=== PATIENT | female | born 1955 | race Two or more races ===

== ENCOUNTER 2016-07-17 18:43 | Emergency (ER) | payer MEDICARE, MEDICAID ==
[~2016-07-17] VITALS: Ht 180.3 cm; Wt 83.9 kg
[~2016-07-17 18:43] MED LIST: INSUINJ37 SC; LISI2.5T47 PO; [UNRECOGNIZED DRUG - CODE] PO
[2016-07-17 20:06] LABS: Basophils # (auto) 0 uL; Basophils % (auto) 0.6 % (0.0-2.0); Eosinophils # (auto) 0.1 uL; Eosinophils % (auto) 2.2 % (0.0-7.0); Hematocrit 37.7 % (36.0-46.0); Hemoglobin 12.5 g/dL (12.2-16.2); Lymphocytes % (auto) 31.1 % (10.0-50.0); Mean Corpuscular Hemoglobin 27.4 pg (28.0-32.0); Mean Corpuscular Hgb Conc. 33.3 g/dL (32.0-36.0); Mean Corpuscular Volume 82.2 fL (80.0-100.0); Mean Platelet Volume 9.9 fL (7.4-10.4); Monocytes # (auto) 0.7 uL; Monocytes % (auto) 10.5 % (0.0-12.0); Neutrophils # (auto) 3.6 uL; Neutrophils % (auto) 55.6 % (37.0-80.0); Platelet Count (auto) 233 10^3/uL (140-450); Red Cell Distribution Width 13.6 % (11.6-16.0); White Blood Cell 6.4 10^3/uL (4.4-10.8)
[2016-07-17 20:22] LABS: Albumin 2.7 g/dL (3.4-5.0); Anion Gap 11 (5-15); Aspartate Aminotransferase 15 U/L (15-37); BUN/Creatinine Ratio 24.6; Blood Urea Nitrogen 16 mg/dL (7-18); Calcium 8.2 mg/dL (8.5-10.1); Carbon Dioxide 26 mmol/L (21-32); Chloride 103 mmol/L (98-107); GFR African American 120 mL/min; GFR Non-African American 99 mL/min; Glucose 329 mg/dL (74-106); Sodium 140 mmol/L (136-145)
[2016-07-17 20:26] LABS: Alkaline Phosphatase 109 U/L (45-117); Bilirubin, Total 0.8 mg/dL (0.2-1.0); Total Protein 6.2 g/dL (6.4-8.2)
[2016-07-17] MEDS ORDERED: MORPHINE SULFATE 4 MG/ML SYRG IV ONE (20:30)
[2016-07-17] MEDS ORDERED: ONDANSETRON HCL 4 MG/2 ML VIAL IV ONE (20:30)
[2016-07-17] MEDS ORDERED: SODIUM CHLORIDE 0.9% 1,000 ML IV ONE (20:30)
[2016-07-18] MEDS ORDERED: diphenhdrAMINE HCL 50 MG/1 ML VL IV ONE (00:30)
[2016-07-18 07:20] VITALS: BP 146/72
== END 2016-07-18 07:22 | disposition home or self-care (01) ==
LOC: EDUNIT# 18:43 → ER 18:43 → EDBD 18:43 → ER 07-18 07:22
DX: S39.012A Strain of muscle, fascia and tendon of lower back, initial encounter (principal); X58.XXXA Exposure to other specified factors, initial encounter; Y93.89 Activity, other specified; Y92.89 Other specified places as the place of occurrence of the external cause; Y99.8 Other external cause status; I25.10 Atherosclerotic heart disease of native coronary artery without angina pectoris; I10 Essential (primary) hypertension; E11.9 Type 2 diabetes mellitus without complications; Z88.6 Allergy status to analgesic agent; Z88.8 Allergy status to other drugs, medicaments and biological substances; Z79.4 Long term (current) use of insulin; Z79.899 Other long term (current) drug therapy; K59.00 Constipation, unspecified; N28.1 Cyst of kidney, acquired; M51.36 Other intervertebral disc degeneration, lumbar region
CPT/HCPCS: 36415; 74176; 80053; 84484; 85025; 93005; 96361; 96374; 96375; 99285; J1200; J2270; J2405; J7030

== ENCOUNTER 2016-07-19 19:13 | Emergency (ER) | payer MEDICARE, MEDICAID ==
[~2016-07-19] VITALS: Ht 180.3 cm; Wt 83.9 kg
[2016-07-19 20:15] LABS: Basophils # (auto) 0 uL; Basophils % (auto) 0.6 % (0.0-2.0); Eosinophils # (auto) 0.1 uL; Eosinophils % (auto) 1.6 % (0.0-7.0); Hematocrit 37.9 % (36.0-46.0); Hemoglobin 12.7 g/dL (12.2-16.2); Lymphocytes # (auto) 2.6 uL; Lymphocytes % (auto) 35.7 % (10.0-50.0); Mean Corpuscular Hemoglobin 27.4 pg (28.0-32.0); Mean Corpuscular Hgb Conc. 33.4 g/dL (32.0-36.0); Mean Corpuscular Volume 82.1 fL (80.0-100.0); Mean Platelet Volume 9.5 fL (7.4-10.4); Monocytes # (auto) 0.7 uL; Monocytes % (auto) 9.4 % (0.0-12.0); Neutrophils # (auto) 3.8 uL; Neutrophils % (auto) 52.7 % (37.0-80.0); Platelet Count (auto) 260 10^3/uL (140-450); Red Cell Distribution Width 13.5 % (11.6-16.0); White Blood Cell 7.3 10^3/uL (4.4-10.8)
[2016-07-19 20:32] LABS: Anion Gap 9 (5-15); Aspartate Aminotransferase 17 U/L (15-37); BUN/Creatinine Ratio 32.8; Blood Urea Nitrogen 22 mg/dL (7-18); Calcium 8.6 mg/dL (8.5-10.1); Carbon Dioxide 24 mmol/L (21-32); Chloride 106 mmol/L (98-107); GFR African American 115 mL/min; GFR Non-African American 95 mL/min; Glucose 195 mg/dL (74-106); Magnesium 2.2 mg/dL (1.6-2.6); Potassium 3.9 mmol/L (3.5-5.1); Sodium 139 mmol/L (136-145)
[2016-07-19 20:33] LABS: INR 0.93 (0.9-1.15); Partial Thromboplastin Time 25.7 sec (22.64-33.71); Prothrombin Time 9.6 sec (9.37-12.3)
[2016-07-19 20:37] LABS: Alkaline Phosphatase 125 U/L (45-117); Bilirubin, Total 0.8 mg/dL (0.2-1.0); Total Protein 6.5 g/dL (6.4-8.2)
[2016-07-20] MEDS ORDERED: ACETAMINOPHEN 325 MG TAB PO ONE (02:45)
[2016-07-20 03:35] VITALS: BP 131/72
== END 2016-07-20 03:40 | disposition home or self-care (01) ==
LOC: ER 19:16
DX: I10 Essential (primary) hypertension (principal); Z88.8 Allergy status to other drugs, medicaments and biological substances; Z88.5 Allergy status to narcotic agent; Z88.6 Allergy status to analgesic agent; Z79.899 Other long term (current) drug therapy; Z79.84 Long term (current) use of oral hypoglycemic drugs; E11.9 Type 2 diabetes mellitus without complications; I25.10 Atherosclerotic heart disease of native coronary artery without angina pectoris
CPT/HCPCS: 36415; 70450; 80053; 83735; 84484; 85025; 85610; 85730; 93005

== ENCOUNTER 2017-05-02 11:52 | Emergency (ER) | payer MEDICARE, MEDICAID ==
[~2017-05-02] VITALS: Ht 167.6 cm; Wt 81.6 kg
[~2017-05-02 11:52] MED LIST changes: +AMLO5TAB2 PO; +GABA100C9 PO; +INSUINJ18 SC; -INSUINJ37 SC; +LEVEMIR SC; +LISI-275 PO; -LISI2.5T47 PO; +METO-281 PO; -[UNRECOGNIZED DRUG - CODE] PO
[2017-05-02 12:24] VITALS: BP 176/91
== END 2017-05-02 12:55 | disposition left against medical advice (07) ==
LOC: EDUNIT# 11:52 → EDBD 11:52 → ER 11:52
DX: I10 Essential (primary) hypertension (principal); Z53.21 Procedure and treatment not carried out due to patient leaving prior to being seen by health care provider
CPT/HCPCS: 93005

== ENCOUNTER 2017-05-22 13:07 | Inpatient (IN) | payer MEDICARE, MEDICAID ==
[~2017-05-22] VITALS: Ht 167.6 cm; Wt 94.9 kg
[2017-05-22 14:49] LABS: Basophils # (auto) 0 uL; Basophils % (auto) 0.3 % (0.0-2.0); Eosinophils # (auto) 0 uL; Hematocrit 29.6 % (36.0-46.0); Hemoglobin 9.9 g/dL (12.2-16.2); Lymphocytes # (auto) 0.5 uL; Lymphocytes % (auto) 4.1 % (10.0-50.0); Mean Corpuscular Hemoglobin 27.7 pg (28.0-32.0); Mean Corpuscular Hgb Conc. 33.3 g/dL (32.0-36.0); Monocytes # (auto) 0.3 uL; Neutrophils % (auto) 93.6 % (37.0-80.0); Nucleated Red Blood Cells % 0.1 %; Platelet Count (auto) 256 10^3/uL (140-450); Red Blood Cells 3.57 10^6/uL (4.0-5.20); Red Cell Distribution Width 15.3 % (11.8-14.3); White Blood Cell 12.9 10^3/uL (4.4-10.8)
[2017-05-22 15:01] LABS: INR 1.04 (0.9-1.15); Prothrombin Time 11.3 sec (9.37-12.3)
[2017-05-22 15:13] LABS: Albumin 2.5 g/dL (3.4-5.0); BUN/Creatinine Ratio 16.3; Calcium 8.4 mg/dL (8.5-10.1); Magnesium 2.1 mg/dL (1.6-2.6); Potassium 3.3 mmol/L (3.5-5.1); Total Protein 6.5 g/dL (6.4-8.2)
[2017-05-22] MEDS ORDERED: NITROGLYCERIN 0.4 MG SL TAB SL PRN (15:45)
[2017-05-22] MEDS ORDERED: cloNIDine HCL 0.1 MG TAB PO ONE ×2 (15:45→21:00)
[2017-05-22] MEDS ORDERED: TEMAZEPAM 15 MG CAP PO PRN (15:45)
[2017-05-22] MEDS ORDERED: HYDROcodone-ACET 5/325MG TAB PO PRN (15:45)
[2017-05-22] MEDS ORDERED: ACETAMINOPHEN 325 MG TAB PO PRN (15:45)
[2017-05-22] MEDS ORDERED: HYDROmorphone HCL 2 MG/ML VL IV PRN (16:00)
[2017-05-22] MEDS ORDERED: POTASSIUM CHLORIDE 20 MEQ, LIDOCAINE 1% (LOCAL ANESTH.) 2 ML in SODIUM CHL 0.9% 100 ML IV ONE (16:00)
[2017-05-22] MEDS: SODIUM CHLORIDE 0.9% 1,000 ML IV SCH (16:04)
[2017-05-22 16:09] LABS: Amylase 45 U/L (25-115); Lipase 128 U/L (73-393)
[2017-05-22] MEDS ORDERED: cefTRIAXone 1GM/10ml IVPUSH 10 ML IV ONE (16:15)
[2017-05-22] MEDS ORDERED: VANCOMYCIN PER PHARMACY 0 MG IV SCH (16:15)
[2017-05-22] MEDS: ONDANSETRON HCL 4 MG/2 ML VIAL IV PRN (16:40)
[2017-05-22 17:43] LABS: Urine Bacteria FEW /hpf (None Seen); Urine Blood 2+ /uL (Negative); Urine Mucus FEW (None Seen); Urine Specific Gravity 1.017 (1.001-1.035); Urine WBC 480 /hpf (0 - 5); Urine WBC Clumps PRESENT /hpf (None Seen)
[2017-05-22] MEDS: Boost Glucose Control 8 Ounces PO SCH (18:00)
[2017-05-22] MEDS ORDERED: VANCOMYCIN 1,500 MG in D5W 5% 250 ML IV SCH (18:00)
[2017-05-22] MEDS: LABETALOL HCL 5 MG/ML ML 20ML VIAL IV PRN (18:18)
[2017-05-22] MEDS: METOCLOPRAMIDE HCL 10 MG TAB PO PRN (19:55)
[2017-05-22] MEDS: ENALAPRILAT 1.25 MG/ML-1ML VIAL IV PRN (20:15)
[2017-05-22] MEDS: AZITHROMYCIN 500MG/ 250ML 250 ML IV SCH (21:12)
[2017-05-22] MEDS: INSULIN DETEMIR(LEVEMIR) 1unit/0.01ml Soln (100units/ml) SC SCH (21:19)
[2017-05-22] MEDS: FAMOTIDINE 20 MG TAB PO SCH (21:19)
[2017-05-22] MEDS: GABAPENTIN 100 MG CAP PO SCH (21:19)
[2017-05-23 04:18] LABS: Basophils # (auto) 0 uL; Eosinophils # (auto) 0 uL; Mean Corpuscular Hgb Conc. 34.2 g/dL (32.0-36.0); Monocytes # (auto) 0.7 uL; Red Cell Distribution Width 15.3 % (11.8-14.3)
[2017-05-23 04:22] LABS: Basophils % (auto) 0.2 % (0.0-2.0); Hematocrit 22.6 % (36.0-46.0); Hemoglobin 7.7 g/dL (12.2-16.2); Lymphocytes # (auto) 1.3 uL; Lymphocytes % (auto) 15.8 % (10.0-50.0); Mean Corpuscular Hemoglobin 28.2 pg (28.0-32.0); Mean Corpuscular Volume 82.5 fL (80.0-100.0); Monocytes % (auto) 8.5 % (0.0-12.0); Neutrophils # (auto) 6.1 uL; Neutrophils % (auto) 75.5 % (37.0-80.0); Platelet Count (auto) 183 10^3/uL (140-450); Red Blood Cells 2.73 10^6/uL (4.0-5.20)
[2017-05-23 04:54] LABS: Albumin 1.9 g/dL (3.4-5.0); BUN/Creatinine Ratio 17.7; Bilirubin, Total 0.4 mg/dL (0.2-1.0); Calcium 7.5 mg/dL (8.5-10.1); Potassium 3.5 mmol/L (3.5-5.1)
[2017-05-23] MEDS: GABAPENTIN 100 MG CAP PO SCH ×3 (06:00→22:00)
[2017-05-23] MEDS: SODIUM CHLORIDE 0.9% 1,000 ML IV SCH ×3 (06:00→16:58)
[2017-05-23] MEDS: NovoloG Insulin 1unit/0.01ml Soln (100units/ml) SC SCH ×3 (07:00→17:00)
[2017-05-23] MEDS: INSULIN DETEMIR(LEVEMIR) 1unit/0.01ml Soln (100units/ml) SC SCH ×2 (07:08→22:00)
[2017-05-23] MEDS: Boost Glucose Control 8 Ounces PO SCH ×3 (08:00→18:00)
[2017-05-23] MEDS: cefTRIAXone 1GM/10ml IVPUSH 10 ML IV SCH (09:40)
[2017-05-23] MEDS: amLODIPine BESYLATE 5 MG TAB PO SCH (10:00)
[2017-05-23] MEDS: LISINOPRIL 5 MG TAB PO SCH (10:00)
[2017-05-23] MEDS: MULTIPLE VITAMIN TAB PO SCH (10:00)
[2017-05-23] MEDS: FAMOTIDINE 20 MG TAB PO SCH ×2 (10:09→22:00)
[2017-05-23] MEDS: AZITHROMYCIN 500MG/ 250ML 250 ML IV SCH (10:09)
[2017-05-23] MEDS ORDERED: DEXTROSE 50% SYRINGE 50 ML IV ONE (12:51)
[2017-05-23] MEDS ORDERED: DEXTROSE (50%) 50ML SYRG IV ONE (13:15)
[2017-05-23] MEDS ORDERED: DEXTROSE (50%) 50ML SYRG IV PRN (19:00)
[2017-05-23] MEDS: LABETALOL HCL 5 MG/ML ML 20ML VIAL IV PRN (23:10)
[2017-05-24] VITALS: BP 118/82
[2017-05-24] MEDS: SODIUM CHLORIDE 0.9% 1,000 ML IV SCH ×3 (00:20→17:38)
[2017-05-24] MEDS ORDERED: CLON0.1T PO (01:30)
[2017-05-24] MEDS ORDERED: LEVEMIR SC (01:30)
[2017-05-24 04:00] VITALS: BP 183/76
[2017-05-24] MEDS: ENALAPRILAT 1.25 MG/ML-1ML VIAL IV PRN ×3 (04:16→18:40)
[2017-05-24] MEDS: GABAPENTIN 100 MG CAP PO SCH ×3 (06:00→21:14)
[2017-05-24] MEDS: NovoloG Insulin 1unit/0.01ml Soln (100units/ml) SC SCH ×3 (06:30→17:00)
[2017-05-24] MEDS: INSULIN DETEMIR(LEVEMIR) 1unit/0.01ml Soln (100units/ml) SC SCH ×2 (06:30→21:14)
[2017-05-24] MEDS: Boost Glucose Control 8 Ounces PO SCH ×3 (08:00→18:00)
[2017-05-24] MEDS ORDERED: MIDAZOLAM HCL 5 MG/ML-1ML VIAL ONE (08:42)
[2017-05-24] MEDS ORDERED: SODIUM CHLORIDE LOCK 10 ML ONE (08:42)
[2017-05-24] MEDS ORDERED: diphenhdrAMINE HCL 50 MG/1 ML VL ONE (08:42)
[2017-05-24] MEDS ORDERED: LIDOCAINE VISCOUS 2% 15ML UD ONE (08:42)
[2017-05-24] MEDS ORDERED: fentaNYL CITRATE 100 MCG/2 ML VL ONE (08:43)
[2017-05-24 09:08] LABS: Basophils # (auto) 0.1 uL; Basophils % (auto) 0.8 % (0.0-2.0); Eosinophils # (auto) 0.1 uL; Eosinophils % (auto) 1.4 % (0.0-7.0); Hematocrit 26.1 % (36.0-46.0); Hemoglobin 8.7 g/dL (12.2-16.2); Lymphocytes # (auto) 2.3 uL; Lymphocytes % (auto) 29.5 % (10.0-50.0); Mean Corpuscular Hemoglobin 27.8 pg (28.0-32.0); Mean Corpuscular Hgb Conc. 33.3 g/dL (32.0-36.0); Mean Corpuscular Volume 83.3 fL (80.0-100.0); Monocytes # (auto) 0.7 uL; Neutrophils # (auto) 4.7 uL; Neutrophils % (auto) 59.3 % (37.0-80.0); Platelet Count (auto) 201 10^3/uL (140-450); Red Blood Cells 3.13 10^6/uL (4.0-5.20); Red Cell Distribution Width 15.2 % (11.8-14.3); White Blood Cell 7.9 10^3/uL (4.4-10.8)
[2017-05-24 09:11] LABS: BUN/Creatinine Ratio 14.7; Calcium 8.1 mg/dL (8.5-10.1); Potassium 3.2 mmol/L (3.5-5.1)
[2017-05-24] MEDS: MULTIPLE VITAMIN TAB PO SCH (10:00)
[2017-05-24] MEDS: AZITHROMYCIN 500MG/ 250ML 250 ML IV SCH (10:30)
[2017-05-24] MEDS: cefTRIAXone 1GM/10ml IVPUSH 10 ML IV SCH (10:30)
[2017-05-24 11:41] VITALS: BP 196/92
[2017-05-24] MEDS: LABETALOL HCL 5 MG/ML ML 20ML VIAL IV PRN ×2 (11:56→16:29)
[2017-05-24] MEDS: LABETALOL HCL 5 MG/ML 4ML SYRINGE IV ONE ×2 (12:22→12:32)
[2017-05-24] MEDS: FAMOTIDINE 20 MG TAB PO SCH ×2 (14:02→21:14)
[2017-05-24] MEDS: LISINOPRIL 5 MG TAB PO SCH (14:02)
[2017-05-24 15:51] VITALS: BP 175/90
[2017-05-24] MEDS: METOCLOPRAMIDE HCL 10 MG TAB PO PRN (17:26)
[2017-05-24] MEDS: amLODIPine BESYLATE 5 MG TAB PO SCH ×2 (17:26→21:12)
[2017-05-24] MEDS: ONDANSETRON HCL 4 MG/2 ML VIAL IV PRN (18:42)
[2017-05-24] MEDS ORDERED: POTASSIUM CHL 20 Meq TABLET PO ONE (19:00)
[2017-05-24] MEDS ORDERED: NIFEdipine ER 30 MG TAB PO ONE (19:00)
[2017-05-24 19:50] VITALS: BP 186/98
[2017-05-24] MEDS: cloNIDine HCL 0.1 MG TAB PO SCH (21:13)
[2017-05-24] MEDS: BACITRACIN TOP OINT 1 UD PKG TOP SCH (21:14)
[2017-05-24 23:50] VITALS: BP 115/53
[2017-05-25] MEDS: SODIUM CHLORIDE 0.9% 1,000 ML IV SCH ×3 (03:20→18:17)
[2017-05-25 03:50] VITALS: BP 131/70
[2017-05-25] MEDS: GABAPENTIN 100 MG CAP PO SCH ×3 (05:07→22:34)
[2017-05-25] MEDS: cloNIDine HCL 0.1 MG TAB PO SCH ×3 (05:07→22:35)
[2017-05-25] MEDS: NovoloG Insulin 1unit/0.01ml Soln (100units/ml) SC SCH ×3 (06:08→17:00)
[2017-05-25] MEDS: INSULIN DETEMIR(LEVEMIR) 1unit/0.01ml Soln (100units/ml) SC SCH ×2 (06:08→22:00)
[2017-05-25 08:00] VITALS: BP 139/68
[2017-05-25] MEDS: Boost Glucose Control 8 Ounces PO SCH ×3 (08:00→18:17)
[2017-05-25] MEDS: MULTIPLE VITAMIN TAB PO SCH (10:00)
[2017-05-25] MEDS: AZITHROMYCIN 500MG/ 250ML 250 ML IV SCH (10:07)
[2017-05-25] MEDS: LISINOPRIL 5 MG TAB PO SCH (10:07)
[2017-05-25] MEDS: BACITRACIN TOP OINT 1 UD PKG TOP SCH ×2 (10:07→22:44)
[2017-05-25] MEDS: cefTRIAXone 1GM/10ml IVPUSH 10 ML IV SCH (10:07)
[2017-05-25] MEDS: FAMOTIDINE 20 MG TAB PO SCH ×2 (10:07→22:34)
[2017-05-25 12:00] VITALS: BP 120/60
[2017-05-25 15:51] VITALS: BP 148/81
[2017-05-25 22:00] VITALS: BP 160/87
[2017-05-25] MEDS: amLODIPine BESYLATE 5 MG TAB PO SCH (22:34)
[2017-05-26] MEDS: SODIUM CHLORIDE 0.9% 1,000 ML IV SCH ×3 (02:58→19:38)
[2017-05-26 05:39] VITALS: BP 179/94
[2017-05-26] MEDS: NovoloG Insulin 1unit/0.01ml Soln (100units/ml) SC SCH ×3 (06:44→17:00)
[2017-05-26] MEDS: INSULIN DETEMIR(LEVEMIR) 1unit/0.01ml Soln (100units/ml) SC SCH (06:44)
[2017-05-26] MEDS: GABAPENTIN 100 MG CAP PO SCH ×3 (06:54→22:00)
[2017-05-26] MEDS: cloNIDine HCL 0.1 MG TAB PO SCH ×3 (06:55→22:03)
[2017-05-26] MEDS: cefTRIAXone 1GM/10ml IVPUSH 10 ML IV SCH ×2 (08:46→08:54)
[2017-05-26] MEDS: Boost Glucose Control 8 Ounces PO SCH ×3 (08:47→19:49)
[2017-05-26 08:50] VITALS: BP 155/81
[2017-05-26] MEDS: LISINOPRIL 5 MG TAB PO SCH (10:00)
[2017-05-26] MEDS: FAMOTIDINE 20 MG TAB PO SCH ×2 (10:00→22:00)
[2017-05-26] MEDS: AZITHROMYCIN 500MG/ 250ML 250 ML IV SCH (10:00)
[2017-05-26] MEDS: MULTIPLE VITAMIN TAB PO SCH (10:00)
[2017-05-26] MEDS ORDERED: NALOXONE HCL 1MG/ML 2ML SYRINGE ONE (12:31)
[2017-05-26] MEDS: BACITRACIN TOP OINT 1 UD PKG TOP SCH ×2 (14:05→22:04)
[2017-05-26 17:00] VITALS: BP 198/87
[2017-05-26] MEDS: LABETALOL HCL 5 MG/ML ML 20ML VIAL IV PRN (17:25)
[2017-05-26] MEDS ORDERED: amLODIPine BESYLATE 5 MG TAB PO SCH (22:00)
[2017-05-26] MEDS: INSULIN LANTUS (GLARGINE) 1 /0.01ml (100units/ml) SC SCH (22:16)
[2017-05-26 22:47] VITALS: BP 153/76
[2017-05-27] MEDS: SODIUM CHLORIDE 0.9% 1,000 ML IV SCH ×2 (03:58→12:18)
[2017-05-27 05:00] VITALS: BP 153/74
[2017-05-27] MEDS: cloNIDine HCL 0.1 MG TAB PO SCH ×2 (06:11→15:50)
[2017-05-27] MEDS: NovoloG Insulin 1unit/0.01ml Soln (100units/ml) SC SCH ×3 (06:11→17:00)
[2017-05-27] MEDS: GABAPENTIN 100 MG CAP PO SCH ×2 (06:11→15:50)
[2017-05-27] MEDS: INSULIN LANTUS (GLARGINE) 1 /0.01ml (100units/ml) SC SCH (06:31)
[2017-05-27] MEDS: Boost Glucose Control 8 Ounces PO SCH ×3 (08:00→17:47)
[2017-05-27 09:00] VITALS: BP 152/73
[2017-05-27] MEDS: cefTRIAXone 1GM/10ml IVPUSH 10 ML IV SCH (09:33)
[2017-05-27] MEDS: LISINOPRIL 5 MG TAB PO SCH (09:35)
[2017-05-27] MEDS: BACITRACIN TOP OINT 1 UD PKG TOP SCH (09:35)
[2017-05-27] MEDS: AZITHROMYCIN 500MG/ 250ML 250 ML IV SCH (09:42)
[2017-05-27] MEDS: MULTIPLE VITAMIN TAB PO SCH (09:43)
[2017-05-27] MEDS ORDERED: PANTOPRAZOLE 40 MG TAB PO SCH (10:00)
[2017-05-27] MEDS ORDERED: PRO-STAT 64 30ML GT SCH (10:00)
[2017-05-27 13:00] VITALS: BP 141/71
[2017-05-27 14:54] VITALS: BP 152/73
[2017-05-27 17:00] VITALS: BP 156/72
== END 2017-05-27 19:23 | disposition home or self-care (01) | DRG 73 ==
LOC: ER 13:07 → EDBD 13:07 → TELE 13:08 → DOU IN ICU 05-23 23:18 → TELE-CENTR 05-25 16:55 → TELE-EAST 05-27 00:41
PROVIDERS: ADMIT Internal Medicine; ATTEND Internal Medicine
PROC: 0DB68ZX Excision of Stomach, Via Natural or Artificial Opening Endoscopic, Diagnostic (ICD-10-PCS; principal; 2017-05-24 12:10)
DX: E10.43 Type 1 diabetes mellitus with diabetic autonomic (poly)neuropathy (principal); E43 Unspecified severe protein-calorie malnutrition; E10.21 Type 1 diabetes mellitus with diabetic nephropathy; I13.0 Hypertensive heart and chronic kidney disease with heart failure and stage 1 through stage 4 chronic kidney disease, or unspecified chronic kidney disease; I50.9 Heart failure, unspecified; E86.0 Dehydration; E10.65 Type 1 diabetes mellitus with hyperglycemia; E83.51 Hypocalcemia; E10.22 Type 1 diabetes mellitus with diabetic chronic kidney disease; K31.84 Gastroparesis; N18.3 Chronic kidney disease, stage 3 (moderate); E87.6 Hypokalemia; D25.9 Leiomyoma of uterus, unspecified; D63.8 Anemia in other chronic diseases classified elsewhere; J45.909 Unspecified asthma, uncomplicated; I25.10 Atherosclerotic heart disease of native coronary artery without angina pectoris; I70.8 Atherosclerosis of other arteries; J44.9 Chronic obstructive pulmonary disease, unspecified; K21.9 Gastro-esophageal reflux disease without esophagitis; Z79.4 Long term (current) use of insulin; Z82.49 Family history of ischemic heart disease and other diseases of the circulatory system; Z83.3 Family history of diabetes mellitus; Z86.73 Personal history of transient ischemic attack (TIA), and cerebral infarction without residual deficits; Z90.49 Acquired absence of other specified parts of digestive tract; Z90.710 Acquired absence of both cervix and uterus; Z98.51 Tubal ligation status; Z79.899 Other long term (current) drug therapy; Z68.33 Body mass index [BMI] 33.0-33.9, adult
CPT/HCPCS: 36415; 43239; 70450; 71045; 74176; 78264; 80048; 80053; 81001; 82150; 82962; 83036; 83605; 83690; 83735; 84443; 84484; 85025; 85610; 85730; 86850; 86900; 86901; 87040; 87081; 87086; 87088; 87186; 96374; 97163; 99291; J1815; J2001; J2250; J2405; J3490; J7060